=== PATIENT | female | born 1960 | race Two or more races ===

== ENCOUNTER 2023-06-27 06:50 | Day surgery (SDC) | payer OTHER ==
[~2023-06-27 06:50] MED LIST: INDERAL 60 MG; LOSARTAN POTASS50 MG PO
== END 2023-06-27 17:20 | disposition home or self-care (01) ==
LOC: CIR.AMB 06:50
PROVIDERS: ATTEND Colon & Rectal Surgery
DX: K60.3 Anal fistula (principal); K64.8 Other hemorrhoids; K60.5 Anorectal fistula; Z88.1 Allergy status to other antibiotic agents